=== PATIENT | male | born 1965 | race Caucasian/White ===

== ENCOUNTER 2021-07-30 03:44 | Emergency (ER) | payer BC ==
[~2021-07-30] VITALS: Ht 182.9 cm; Wt 82.0 kg
[2021-07-30] MEDS ORDERED: IBUPROFEN 400MG TABLET PO ONE (04:30)
[2021-07-30] MEDS ORDERED: ACETAMINOPHEN 325MG TABLET PO ONE (04:30)
[2021-07-30] MEDS ORDERED: NAPR-681 MT (06:43)
[2021-07-30] MEDS ORDERED: METH-773 MT (06:43)
[2021-07-30 06:59] VITALS: BP 156/99
== END 2021-07-30 06:59 | disposition home or self-care (01) ==
LOC: ER 03:44
DX: S16.1XXA Strain of muscle, fascia and tendon at neck level, initial encounter (principal); S39.012A Strain of muscle, fascia and tendon of lower back, initial encounter; E03.9 Hypothyroidism, unspecified; V43.52XA Car driver injured in collision with other type car in traffic accident, initial encounter; Y93.89 Activity, other specified; Y92.410 Unspecified street and highway as the place of occurrence of the external cause
CPT/HCPCS: 72040; 72100; 99284